=== PATIENT | female | born 1990 | race Caucasian/White ===

== ENCOUNTER 2024-12-18 08:15 | Emergency (ER) | payer OTHER, SELFPAY ==
[2024-12-18 08:18] VITALS: BP 144/100
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
[2024-12-18 09:07] LABS: % Basophils 1.2 % (0-2); % Eosinophils 3.6 % (0-6); % Immature Granulocytes 0.3 % (0-0.5); % Lymphocytes 27.7 % (20.5-51.1); % Monocytes 9.1 % (1.7-9.3); % Neutrophils 58.1 % (42.2-75.2); Absolute Basophils 0.1 10^3/uL (0-0.2); Absolute Eosinophils 0.2 10^3/uL (0-0.7); Absolute Lymphocytes 1.9 10^3/uL (1.2-3.4); Absolute Monocytes 0.6 10^3/uL (0.1-0.6); Absolute Neutrophils 3.9 10^3/uL (1.4-6.5); Hemoglobin 12.2 g/dL (12.0-16.0); Mean Corp Hgb Conc. 33.9 g/dL (33.0-37.0); Mean Corpuscular Hgb 27.6 pg (27.0-31.0); Mean Corpuscular Volume 81.4 fL (81.0-99.0); Mean Platelet Volume 10.7 fL (7.4-10.4); Nucleated Red Blood Cells % 0 %; Platelet Count 272 10^3/uL (130-400); Red Blood Cell Count 4.42 10^6/uL (4.20-5.40); Red Cell Dist. Width 13.2 % (11.5-14.5); White Blood Cell Count 6.7 10^3/uL (4.8-10.8)
[2024-12-18 09:14] LABS: HCG, Serum Qualitative Screen Negative
[2024-12-18 09:25] LABS: ALT (SGPT) 21 U/L (0-35); AST (SGOT) 22 U/L (14-36); Acetaminophen < 10 ug/ml (10-30); Albumin 4.6 g/dl (3.5-5.0); Alkaline Phosphatase 65 U/L (38-126); Blood Urea Nitrogen 9 mg/dl (7-17); Calcium 9.7 mg/dl (8.4-10.2); Carbon Dioxide 24 mmol/L (22-30); Chloride 109 mmol/L (98-107); Glucose 103 mg/dl (70-99); Potassium 4.6 mmol/L (3.5-5.1); Salicylate < 1.0 mg/dl (2.0-20.0); Sodium 140 mmol/L (135-145); Total Bilirubin 0.7 mg/dl (0.2-1.3); Total Protein 7.4 g/dl (6.3-8.2); eGFR > 60.00
[2024-12-18 09:30] LABS: Alcohol None Detected
[2024-12-18 10:06] LABS: Amphetamines Negative (Negative); Barbiturates Negative (Negative); Benzodiazepines Negative (Negative); Buprenorphine Negative (Negative); Cocaine Negative (Negative); Marijuana Negative (Negative); Methadone Negative (Negative); Methamphetamines Negative (Negative); Opiates Negative (Negative); Phencyclidine Negative (Negative); Tricyclic Antidepressants Negative (Negative)
[2024-12-18 11:07] LABS: TSH Reflex To Free T4 1.11 uIU/ml (0.47-4.68)
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
[2024-12-18 11:59] VITALS: BP 137/111
== END 2024-12-18 12:00 | disposition home or self-care (01) ==
LOC: EMR 08:15
PROVIDERS: CONSULT PHYSICIAN Psychiatry & Neurology Psychiatry; EMERGENCY PHYSICIAN Emergency Medicine; FAMILY PHYSICIAN Nurse Practitioner Family
DX: G47.00 Insomnia, unspecified (principal); F22 Delusional disorders; F43.10 Post-traumatic stress disorder, unspecified; F41.9 Anxiety disorder, unspecified; F32.A Depression, unspecified; R03.0 Elevated blood-pressure reading, without diagnosis of hypertension
CPT/HCPCS: 99283; 80053; 80143; 80179; 80306; 82077; 84443; 84703; 85025

== ENCOUNTER 2024-12-19 12:23 | Emergency (ER) | payer OTHER, SELFPAY ==
[2024-12-19 12:23] VITALS: BMI 25.0
[2024-12-19 12:26] VITALS: BP 141/99
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
[2024-12-19 13:44] VITALS: BP 134/74
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
[2024-12-19 14:43] VITALS: BP 129/84
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
== END 2024-12-19 14:49 | disposition home or self-care (01) ==
LOC: EMR 12:23
PROVIDERS: CONSULT PHYSICIAN Psychiatry & Neurology Psychiatry; EMERGENCY PHYSICIAN Emergency Medicine; FAMILY PHYSICIAN Nurse Practitioner Family
DX: F22 Delusional disorders (principal); R03.0 Elevated blood-pressure reading, without diagnosis of hypertension; F41.9 Anxiety disorder, unspecified; Z63.8 Other specified problems related to primary support group; F43.10 Post-traumatic stress disorder, unspecified; F29 Unspecified psychosis not due to a substance or known physiological condition; Z91.013 Allergy to seafood; Z91.018 Allergy to other foods
CPT/HCPCS: 99282